=== PATIENT | female | born 1945 | race Caucasian/White ===

== ENCOUNTER 2017-01-08 16:55 | Emergency (ER) | payer OTHER ==
[2017-01-08] MEDS ORDERED: ONDANSETRON ODT PREPAC 4 MG TAB.RAPDIS PO ONE (20:29)
--- NOTE | 2017-01-08 20:36 | ER PHYSICIAN DOCUMENTATION ---
Physician Documentation [facility] Name:Mary Lester Age:71 yrs Sex:Female :1945 Arrival Date:01/08/2017 Time:16:55 Bed4 Private MD: Zhang Ibrahim Disposition: 01/10 10:59 Chart complete. tl1 Disposition: 01/08/17 19:04 Discharged to Home/Self Care. Impression: Trimalleolar Fracture. - Condition is Good. - Discharge Instructions: FRACTURE, Ankle (General). - Prescriptions for [place] 5- 325 mg Oral Tablet - take 1 tablet by ORAL route every 6 hours As needed; 20 tablet. Zofran 4 mg Oral Tablet - take 1-2 tablet by ORAL route every 4-6 hours As needed; 10 tablet. - Medical Reconciliation form form. - Follow up: Segundo Echevarria DO; When: 2 - 3 days; Reason: Recheck today's complaints, Continuance of care. - Problem is new. - Symptoms have improved. HPI: 01/08 17:10 This 71 yrs old Female presents to ER via Private Vehicle with complaints of tl1 Ankle Injury - LEFT. 17:10 The patient presents with an injury. The complaints affect the left ankle. Onset: The tl1 symptom(s)/episode began/occurred suddenly, this morning. Context: The problem was sustained outdoors, resulted from a mis-step by the patient, The mechanism of injury involved inversion of the affected ankle. The patient is unable to bear weight. The patient is not able to ambulate. Associated signs and symptoms: The patient has no apparent associated signs or symptoms. this occurred in the park while hiking. She had to be littered out. No other complaint.. Historical: - Allergies: No known drug Allergies; - Home Meds: 1. Lisinopril Oral 2. hctz 3. Lipitor Oral - PMHx: Hypertension; - PSHx: None; - Tetanus: < 10 years. - Ebola Screening: : Patient negative for fever greater than or equal to 101.5 degrees Fahrenheit, and additional compatible Ebola Virus Disease symptoms. Patient denies exposure to infectious person. Patient denies travel to an Ebola-affected area in the 21 days before illness onset. No symptoms or risks identified at this time. . - Immunization history: Unable to Obtain. - Social history: Smoking status: Patient states was never smoker of tobacco. Patient uses alcohol occasionally. ROS: 17:10 MS/extremity: Positive for pain, swelling, tenderness, of the left lateral ankle and tl1 left medial ankle. 17:10 All other systems are negative. Exam: 17:10 Constitutional: This is a well developed, well nourished patient who is awake, alert, tl1 and in no acute distress. 17:10 Head/face: Exam is negative for acute changes. 17:10 Cardiovascular: Rate: normal. 17:10 Respiratory: Respirations: normal. 17:10 Musculoskeletal/extremity: Extremities: grossly normal except: noted in the left lateral ankle and left medial ankle: decreased ROM, pain, swelling, tenderness, Circulation is intact in all extremities. Sensation intact. Compartment Syndrome exam of affected extremity: is normal. Calcaneus exam normal. 17:10 Skin: Exam negative for acute changes. 17:10 Neuro: Exam negative for acute changes. Vital Signs: 17:20 BP 167 / 83; Pulse 103; Resp 20; Temp 97.3; Pulse Ox 94% on R/A; Pain 5/10; rs Procedures: 19:13 Splinting: Splint applied to left leg using Orthoglass splint, applied by myself. jm Examined by me, post splint application: neurovascular intact, brisk capillary refill noted, Patient tolerated well. MDM: 17:07 Patient medically screened. tl1 20:00 Differential diagnosis: fracture, sprain. Data reviewed: vital signs, nurses notes, tl1 radiologic studies, plain films, and as a result, I will discharge patient. Physician consultation: Segundo Echevarria DO was called at 20:00, was contacted at 20:00, regarding patient's condition, outpatient follow-up, in 2-3 days, and will see patient in office, in 2-3 days. 01/09 12:11 Order name: ANKLE; 3[place] [id number] EDMS 01/08 19:04 Order name: ORTHO: Crutches & Training; Complete Time: 20:23 tl1 Dispensed Medications: 20:23 Drug: HYDROcodone-acetaminophen (5mg/325 mg) 1-2 tabs 2 tabs; Route: PO; rs 20:24 Follow up: Response: Pharmacy closed - take home med pack; Dispensed at discharge. rs 20:23 Drug: Zofran 1 tablet; Route: PO; rs 20:25 Follow up: Response: Pharmacy closed - take home med pack; Dispensed at discharge. rs Signatures: Andreea Scott RN RN rs Noah Santos MD MD jm Leigh, Tom, MD MD tl1
--- NOTE | 2017-01-08 20:36 | ER NURSING DOCUMENTATION ---
Nurse's Notes [facility] Name:Mary Lester Age:71 yrs Sex:Female :1945 Arrival Date:01/08/2017 Time:16:55 Bed4 Private MD: Diagnosis:Trimalleolar Fracture Presentation: 01/08 17:09 Presenting complaint: Patient states: Twisted ankle while hiking this morning. Unable rs to wt bear. Was littered out by [facility] rescue. Had ibuprofen at 1100, and kept it iced and elevated. Transition of care: patient was not received from another setting of care. 17:09 Acuity: CK 3 rs 17:09 Method Of Arrival: Private Vehicle rs Triage Assessment: 17:23 General: Appears comfortable, well developed, well nourished, well groomed, Behavior is rs cooperative, pleasant. Pain: Complains of pain in left ankle Pain does not radiate. Pain currently is 5 out of 10 on a pain scale. Neuro: No deficits noted. Level of Consciousness is awake, alert, Oriented to person, place, time, event. Cardiovascular: No deficits noted. Capillary refill < 3 seconds Heart tones S1 S2. Respiratory: No deficits noted. Respiratory effort is even, unlabored, Respiratory pattern is regular, symmetrical. Derm: Skin is pink, warm & dry. Bruising that is on left ankle. Musculoskeletal: Circulation, motion, and sensation intact Capillary refill Range of motion limited in left ankle Swelling present in left ankle Tenderness present in left lat ankle. Historical: - Allergies: No known drug Allergies; - Home Meds: 1. Lisinopril Oral 2. hctz 3. Lipitor Oral - PMHx: Hypertension; - PSHx: None; - Tetanus: < 10 years. - Ebola Screening: : Patient negative for fever greater than or equal to 101.5 degrees Fahrenheit, and additional compatible Ebola Virus Disease symptoms. Patient denies exposure to infectious person. Patient denies travel to an Ebola-affected area in the 21 days before illness onset. No symptoms or risks identified at this time. . - Immunization history: Unable to Obtain. - Social history: Smoking status: Patient states was never smoker of tobacco. Patient uses alcohol occasionally. Screenin:57 Infectious Disease Risk None. Abuse screen: Denies threats or abuse. Nutritional rs screening: No deficits noted. Assessment: 18:39 See Triage Assessment done by same RN. rs Vital Signs: 17:20 BP 167 / 83; Pulse 103; Resp 20; Temp 97.3; Pulse Ox 94% on R/A; Pain 5/10; rs ED Course: 17:03 Patient arrived in ED. svitlana 17:06 Zhang Matt MD is Attending Physician. tl1 17:09 Andreea Scott RN is Primary Nurse. rs 17:15 Notified ED Physician of patient's arrival and chief complaint. Dr. Matt notified. rs Allergy Band Placed Arm band placed on Bed in low position Call Light in Reach HOB Elevated Side rails up x1. Family accompanied patient. X-ray done. 17:22 Triage completed. rs 17:29 Patient moved to radiology. tt 17:46 Patient moved back from radiology. tt 17:57 Valuables Remains with patient. rs 19:03 Segundo Echevarria DO is Referral Physician. tl1 20:23 Crutch training done. Posterior lower leg splint applied on left leg. rs Administered Medications: 20:23 Drug: HYDROcodone-acetaminophen (5mg/325 mg) 1-2 tabs 2 tabs; Route: PO; rs 20:24 Follow up: Response: Pharmacy closed - take home med pack; Dispensed at discharge. rs 20:23 Drug: Zofran 1 tablet; Route: PO; rs 20:25 Follow up: Response: Pharmacy closed - take home med pack; Dispensed at discharge. rs Outcome: 19:04 Discharge ordered by . tl1 20:25 Discharged to home via wheelchair. rs 20:25 Condition: improved 20:25 Discharge instructions given to patient, family, Instructed on crutch walking, discharge instructions, follow up and referral plans. medication usage, Demonstrated understanding of instructions, crutch walking, medications, Prescriptions given X 2. 20:35 Patient left the ED. rs Signatures: Andreea Scott RN RN rs Danuta Kate tt Noé Santiago, Reg Reg Zhang Ayala MD MD tl1
--- NOTE | 2017-01-09 09:26 | RADIOLOGY REPORT ---
Three views of the left ankle demonstrate a nondisplaced comminuted fracture of the distal fibula. Nondisplaced fracture of the posterior tibia is noted. Comminuted fracture of the medial malleolus is noted with 5 mm of distal displacement. No other abnormality is identified. IMPRESSION: Trimalleolar fractures as described. MTDD
== END 2017-01-08 20:35 | disposition home or self-care (01) ==
LOC: ER 16:55 → MERGE 16:55 → ER 20:35
DX: S82.852A Displaced trimalleolar fracture of left lower leg, initial encounter for closed fracture (principal); W18.49XA Other slipping, tripping and stumbling without falling, initial encounter; Y92.838 Other recreation area as the place of occurrence of the external cause; Y93.01 Activity, walking, marching and hiking; I10 Essential (primary) hypertension; Z79.899 Other long term (current) drug therapy
CPT/HCPCS: 29515; 99284

== ENCOUNTER 2017-01-15 06:09 | Day surgery (SDC) | payer OTHER ==
[2017-01-15] MEDS ORDERED: ceFAZolin 1 GM in NORMAL SALINE MINI-BAG+ 100 ML IV PRN ×3 (06:15→08:29)
[2017-01-15 06:56] VITALS: RESP 16
[2017-01-15] MEDS ORDERED: BUPIVACAINE HCL/PF 0.5% 30 ML VIAL ONE (06:59)
[2017-01-15 07:01] LABS: BLOOD UREA NITROGEN 17 mg/dL (7-17); CALCIUM 9.8 mg/dL (8.4-10.2); CHLORIDE 100 mmol/L (98-107); EST GLOMERULAR FILTRATION RATE > 60 mL/min; GLUCOSE 114 mg/dL (70-100); POTASSIUM 4.2 mmol/L (3.5-5.1); SODIUM 135 mmol/L (137-145)
[2017-01-15] MEDS ORDERED: BACITRACIN 50,000 UNITS VIAL IM ONE (07:04)
[2017-01-15] MEDS ORDERED: BACITRACIN 14 APP/14 GM TUBE TOPICAL ONE (07:04)
[2017-01-15] MEDS ORDERED: MIDAZOLAM HCL 2 MG/2 ML SYR IV PRN (07:20)
[2017-01-15] MEDS ORDERED: LIDOCAINE HCL 1% 20 ML VIAL SUBCUT PRN ×2 (07:20→08:29)
[2017-01-15] MEDS ORDERED: ACETAMINOPHEN 1,000 MG/100 ML VIAL IV SCH (07:20)
[2017-01-15] MEDS ORDERED: FAMOTIDINE IN SALINE, ISO-OSM 20 MG/50 ML PIGGYBACK IV SCH (07:20)
[2017-01-15] MEDS ORDERED: SUCCINYLCHOLINE CHLORIDE 200 MG/10 ML VIAL ONE (07:24)
[2017-01-15] MEDS ORDERED: ROCURONIUM BROMIDE 50 MG/5 ML VIAL IV ONE (07:24)
[2017-01-15] MEDS ORDERED: FAMOTIDINE IN SALINE, ISO-OSM 20 MG/50 ML PIGGYBACK IV ONE (07:24)
[2017-01-15] MEDS ORDERED: FENTANYL 100 MCG/2 ML VIAL ONE ×2 (07:25→10:01)
[2017-01-15] MEDS ORDERED: DEXAMETHASONE 4 MG/ML VIAL ONE (07:25)
[2017-01-15] MEDS ORDERED: ONDANSETRON HCL 4 MG/2 ML VIAL ONE (07:25)
[2017-01-15] MEDS ORDERED: ACETAMINOPHEN 1,000 MG/100 ML VIAL IV ONE (07:26)
[2017-01-15] MEDS ORDERED: LIDOCAINE HCL 2% JELLY 1 APP/5 ML TUBE ONE (07:27)
[2017-01-15] MEDS ORDERED: LIDOCAINE HCL 2% 20 ML VIAL ONE (07:27)
[2017-01-15] MEDS ORDERED: BUPIVACAINE/EPI 0.5% 50 ML VIAL INFILTRAT ONE (07:49)
[2017-01-15] MEDS ORDERED: LACTATED RINGERS 1,000 ML IV SCH ×3 (08:00→09:00)
[2017-01-15] MEDS ORDERED: EPHEDrine SULFATE 50 MG/ML VIAL ONE (08:16)
[2017-01-15] MEDS ORDERED: MORPHINE SULFATE 10 MG/ML SYR IV PRN (08:29)
[2017-01-15] MEDS ORDERED: FENTANYL 100 MCG/2 ML VIAL IV PRN (08:29)
[2017-01-15] MEDS ORDERED: ONDANSETRON HCL 4 MG/2 ML VIAL IV PRN (08:29)
[2017-01-15] MEDS ORDERED: MORPHINE SULFATE 2 MG/ML SYR IV PRN (09:01)
[2017-01-15 11:05] VITALS: O2SAT 93
--- NOTE | 2017-01-15 11:58 | OPERATIVE REPORT ---
Preoperative diagnosis; left ankle tri-malleolus fracture Postoperative diagnosis; left ankle tri-malleolus fracture Procedure; left ankle bimalleolar open reduction internal fixation Primary surgeon; Dr. Segundo Echevarria Anesthesia; General Estimated blood loss; minimal Complications; none Total tourniquet time; 120 minutes. Procedure note; The patient was brought to the OR suite and after administration of general anesthesia the left lower extremity was prepped and draped in a sterile fashion. A well-padded tourniquet was applied to the left proximal thigh. Fluoroscopic intensification was utilized for optimal incisional placement. The incision sites were injected with half percent Marcaine with epinephrine prior to incision. Dissection was carried down to the fracture site. A curet was utilized to remove hematoma matter and the area was flushed and irrigated with bacitracin infused normal saline. Sharp bone reduction clamps were utilized to reduce the fracture followed by insertion of a lag screw by technique perpendicular to the fracture. An 8 hole plate was contoured and positioned and locked into place with cortical and cancellus screws proximally and distally respectively after predrilling and measuring. Attention was then drawn to the medial malleolus which was also injected with half percent bupivacaine with epinephrine. Dissection was carried down to the fracture. The medial malleolus had a complex fracture pattern with a 3 part configuration. The main medial malleolus part was secured back to the tibia with a cannulated partially threaded lag screw. The oblique posterior fragment was then secured to the tibia with 2 cannulated screws after first inserting K wires from anterior to posterior direction. The deltoid ligament complex was then repaired which had an avulsion component to the injury. There was also some loose bony avulsed fragments, which did not have soft tissue attachments, which were also removed prior to fracture reduction. The incisions were copiously irrigated with bacitracin infused normal saline and closed in a stepwise fashion utilizing 0 Vicryl followed by 3-0 Vicryl followed by 3-0 nylon at the level of the skin and a running modified horizontal mattress suture. NELSON
[2017-01-15 12:25] VITALS: BP 156/81; PULSE 88; TEMP 98.6
--- NOTE | 2017-01-18 07:25 | RADIOLOGY REPORT ---
Four limited views of the left ankle from the C-Arm in the operating room are compared with prior films dated 01/08/2017. There has been interval open reduction and internal fixation of the distal fibula fracture and medial malleolar fracture. No other change is identified. IMPRESSION: Interval open reduction and internal fixation of the distal fibula and medial malleolus. MTDD
--- NOTE | 2017-01-28 18:05 | HISTORY & PHYSICAL ---
History of Present Illness (Bravo Segovia MD; 01/11/2017 10:25 AM) The patient is a 71 year old female for a pre-op physical. Date of procedure: ( 01/15/2017) The patient's planned surgeon is Segundo Echevarria DO. Planned anesthesia includes general anesthesia. Cardiac risk factors include: hypertension and hyperlipidemia. Note for "Pre OP Evaluation": 1. Trimalleolar Fracture: No prior surgery. No family history of anesthesia issues (brother had CABG and related to tobacco and younger brother with surgery tolerated fine), no bleeding issues even with deep dental work. No family nor personal history of clotting issues/dvt/pe (sister has afib on warfarin). Bone density last year normal METs: hikes, did [place] or [place] in about 50 minutes round trip. Several flights stairs not issue usually. Fell yesterday and again this morning coming to clinic, no injuries. Balance off. Sore from Crutches. I recommend PT evaluation and likely walker. I also recommend her bike on regional sales trainer after surgery to remain active. Problem List/Past Medical (Bravo Segovia MD; 01/11/2017 10:00 AM) Dyslipidemia (E78.5) Allergies (Love Thomas, RN; 01/11/2017 9:28 AM) No Known Drug Goasrmwvk67/05/2017 Family History (Love Thomas RN; 01/11/2017 9:31 AM) Coronary Artery Disease Mother, Father, Brother, Sister. Throat Cancer Father. Myocardial Infarction Father. in 50's Hypertension Mother, Brother. Angina Pectoris Mother. Diabetes Mellitus Paternal Grandfather. Social History (Love Thomas RN; 01/11/2017 9:31 AM) Tobacco Use Former smoker. Alcohol Use Drinks Socially. Medication History (Love Thomas RN; 01/11/2017 9:31 AM) Lisinopril-Hydrochlorothiazide (20-12.5MG Tablet, 2 tabs Oral daily) Active. Lipitor (10MG Tablet, 1 tab Oral daily) Active. Medications Reconciled Diagnostic Studies History (Bravo Segovia MD; 01/11/2017 10:31 AM) EKG07 Within Normal Limits. Normal Other Problems (Bravo Segovia MD; 01/11/2017 10:00 AM) Hypertension Vitals (Bravo Segovia MD; 01/11/2017 10:14 AM) 01/11/2017 9:32 AM Weight: 150 lb Height: 64in Weight was reported by patient. Body Surface Area: 1.73 m Body Mass Index: 25.75 kg/m Pain Level: 10 Temp.: 99.4F(Temporal) Pulse: 88 (Regular) Resp.: 16 (Unlabored) P.OX: 94% (Room air) BP: 154/80 (Sitting, Left Arm, Standard) ankle discomfort/pain recheck 141/81 Physical Exam (Bravo Seogvia MD; 01/11/2017 10:27 AM) General Mental Status-Alert. General Appearance-Cooperative, Not in acute distress. Build & Nutrition-Well nourished and Well developed. Head and Neck Head-normocephalic, atraumatic with no lesions or palpable masses. Neck Normal Exam - No Lymphadenopathy, No Thyromegaly. Global Assessment - No lymphadenopathy or thyromegaly. Carotid Arteries - Bilateral - No Carotid Bruits. Trachea-midline. Thyroid Gland Characteristics - smooth, normal size and consistency and no palpable nodules. Eye Normal Exam-Fundi benign with normal vessel and sharp discs. ENMT Ears Pinna - Bilateral - normal. External Auditory Canal - Bilateral - Clear, no cerumen impaction noted. Otoscopic Exam - Tympanic Membrane - Bilateral - Normal and tympanic membrane is casper in appearance. Mouth and Throat Oral Cavity/Oropharynx - normal and moist appearing. Chest and Lung Exam Auscultation Breath sounds - Good breath sounds and Clear and Symmetric throughout. Cardiovascular Inspection-No Heaves. Auscultation Rhythm - Regular. Heart Sounds - Normal heart sounds. Murmurs & Other Heart Sounds - Auscultation of the heart reveals - No Murmurs. Peripheral Vascular Note: right DP pulses Assessment & Plan (Bravo Segovia MD; 01/11/2017 10:30 AM) Preop exam for internal medicine (Z01.818) Current Plans PT (PROTHROMBIN TIME) (57980) PTT (ACTIVATED PARTIAL THROMBOPLASTIN TIME) (13903) Dyslipidemia (E78.5) Current Plans Comprehensive Metabolic Panel (35688) Lipid Panel (67742) Fasting Required TSH (Thyroid Stimulating Hormone) (96395) HANDLING OF LAB SPECIMEN (33468) PHLEBOTOMY (82132) Hypertension, benign (I10) Current Plans CBC, Platelets & Auto Diff (12789) EKG, Complete (78976) Closed trimalleolar fracture of left ankle, initial encounter (S82.649Y) Impression: After educating the patient regarding treatment options with their associated risks and benefits, the patient elected to proceed with surgical treatment of the injury/pathology with LEFT ANKLE TRIMALLEOLAR OPEN REDUCTION INTERNAL FIXATION. The risks and benefits of the specific procedure were explained and all questions and concerns were addressed and answered. Post operative rehabilitation requirements and expectations for optimal outcome were reviewed and the patient confirmed understanding these and committed to compliance. All questions answered. The patient will be optimized medically by consultation with their primary care physician prior to their procedure. The patient was instructed to keep the leg elevated as much as possible above heart level, to use rest, ice and an tc bandage to minimize swelling. Health education/counseling (Z71.89) Current Plans Pt Education - Physician Instructions:: discussed with patient and provided information. Pt Education - How to access health information online: discussed with patient and provided information. Note:2 further falls with muscle soreness using crutches and balance issues. Recommend walker and referring to PT for evaluation and teaching walker. EKG normal, comorbidity managed, excellent metabolic equivalents. She is optimized for anesthesia. Labs pending. Signed by Bravo Segovia MD (01/11/2017 10:32 AM) NELSON
--- NOTE | 2017-01-28 18:13 | PREOPERATIVE H&P ---
History of Present Illness (Segundo Echevarria ; 01/10/2017 6:08 PM) The patient is a 71 year old female. Patient presents complaining of left ankle pain after falling a couple days ago hiking. She presents with a splint in place. Problem List/Past Medical (Segundo EchevarriaDO; 01/10/2017 6:08 PM) Ankle fracture, left (S82.892A) Allergies (Bonnie Hughes RN; 01/10/2017 2:58 PM) No Known Drug Orjoisbgx58/05/2017 Family History (Bonnie Hughes RN; 01/10/2017 2:58 PM) Coronary Artery Disease Mother. Social History (Bonnie Hughes RN; 01/10/2017 2:57 PM) Alcohol Use Drinks Socially. Tobacco Use Former smoker. Medication History (Bonnie Hughes RN; 01/10/2017 2:56 PM) Lisinopril-Hydrochlorothiazide (20-12.5MG Tablet, 2 tabs Oral daily) Active. Lipitor (10MG Tablet, 1 tab Oral daily) Active. Medications Reconciled Review of Systems (Segundo Carrollricardo WHITE; 01/10/2017 6:08 PM) General Not Present- Chills and Fever. Skin Present- Bruising (right posterior thigh). Not Present- Erythema, Skin Color Changes and Skin Problems. HEENT Not Present- Sleep Apnea. Neck Not Present- Neck Pain. Respiratory Not Present- Cough and Shortness of Breath. Cardiovascular Not Present- Chest Pain, Difficulty Breathing On Exertion, Fainting and Leg Pain and/or Swelling. Gastrointestinal Not Present- Abdominal Pain, Nausea and Vomiting. Female Genitourinary Not Present- Painful Urination. Musculoskeletal Not Present- Decreased Range of Motion, Joint Pain, Joint Stiffness, Joint Swelling, Muscle Pain and Muscle Weakness. Neurological Not Present- Dizziness, Focal Neurological Symptoms, Numbness in extremities, Trouble walking and Weakness. Psychiatric Not Present- Anorexia, Anxiety and Depression. Endocrine Not Present- Weight Loss. Hematology Not Present- Bleeding Problems, DVT and Easy Bruising. Vitals (Bonnie Hughes RN; 01/10/2017 2:54 PM) 01/10/2017 2:49 PM Weight: 150 lb Height: 64in Weight was reported by patient. Body Surface Area: 1.73 m Body Mass Index: 25.75 kg/m Temp.: 98.4F Pulse: 97 (Regular) Resp.: 16 (Unlabored) BP: 132/58 (Sitting, Left Arm, Standard) Physical Exam (Segundo Echevarria DO; 01/10/2017 6:10 PM) The physical exam findings are as follows: Note:Physical examination of the left ankle demonstrates positive tenderness to palpation medially and laterally. Normal range of motion and motor of the toes. Dorsalis pedis pulses 2/4. Normal sensation. Normal range of motion of the knee. Plain film x-rays demonstrate a trimalleolar ankle fracture with displacement of the medial lateral fragments. The posterior malleolar fragment is nondisplaced. Assessment & Plan (Segundo Echevarria DO; 01/10/2017 6:11 PM) Closed trimalleolar fracture of left ankle, initial encounter (S82.122A) Impression: After educating the patient regarding treatment options with their associated risks and benefits, the patient elected to proceed with surgical treatment of the injury/pathology with LEFT ANKLE TRIMALLEOLAR OPEN REDUCTION INTERNAL FIXATION. The risks and benefits of the specific procedure were explained and all questions and concerns were addressed and answered. Post operative rehabilitation requirements and expectations for optimal outcome were reviewed and the patient confirmed understanding these and committed to compliance. All questions answered. The patient will be optimized medically by consultation with their primary care physician prior to their procedure. The patient was instructed to keep the leg elevated as much as possible above heart level, to use rest, ice and an tc bandage to minimize swelling. Ankle fracture, left (S82.892A) Current Plans OPTX of trimalleolar ankle fracture with fixation of posterior lip(21191) (left) EKG, Complete (68489) CBC & Platelets (Auto) (36496) Metabolic Panel, Basic (97903) PT/INR (Prothrombin Time) (68111) Signed by Segundo Echevarria DO (01/10/2017 6:12 PM) Patient examined at bedside. No interval changes. Signed Segundo Echevarria DO MTDElsa
== END 2017-01-15 11:59 | disposition home or self-care (01) ==
LOC: SDS 06:09
PROVIDERS: ATTEND Orthopaedic Surgery
DX: S82.852A Displaced trimalleolar fracture of left lower leg, initial encounter for closed fracture (principal); X50.0XXA Overexertion from strenuous movement or load, initial encounter; E78.5 Hyperlipidemia, unspecified; Z79.899 Other long term (current) drug therapy
CPT/HCPCS: 36415; 76000; 80048; C1713; J0690; J2405; J3010; S0020